=== PATIENT | female | born 1940 | race Caucasian/White ===

== ENCOUNTER 2021-06-25 06:44 | Day surgery (SDC) | payer MEDICARE ==
[2021-06-18 15:29] LABS: BASOPHILS # (AUTO) 0.1 X10'3 (0-0.2); BASOPHILS % (AUTO) 1.4 % (0-1); EOSINOPHILS # (AUTO) 0.1 X10'3 (0-0.9); EOSINOPHILS % (AUTO) 2.4 % (0-6); LYMPHOCYTES # (AUTO) 1.9 X10'3 (1.1-4.8); LYMPHOCYTES % (AUTO) 29.6 % (21-51); MEAN CORPUSCULAR HEMOGLOBIN 31.4 PG (27.0-31.0); MEAN CORPUSCULAR HGB CONC 33.1 g/dL (33.0-36.5); MONOCYTES # (AUTO) 0.7 X10'3 (0-0.9); MONOCYTES % (AUTO) 10.3 % (2-12); NEUTROPHILS # (AUTO) 3.6 X10'3 (1.8-7.7); NEUTROPHILS % (AUTO) 56.3 % (42-75); PRE OP HEMOGLOBIN 11.9 g/dL (12.0-16.0); PRE OP PLATELET COUNT 338 X10'3 (140-440); RED BLOOD COUNT 3.79 X10'6 (4.20-5.60)
[2021-06-18 15:54] LABS: ALBUMIN 3.6 G/DL (3.4-5.0); ALKALINE PHOSPHATASE 60 IU/L (46-116); BLOOD UREA NITROGEN 13 MG/DL (7-18); BUN/CREATININE RATIO 11.6 (6.6-38.0); CALCIUM 9.6 MG/DL (8.5-10.1); CHLORIDE 99 MMOL/L (99-107); CREATININE 1.12 MG/DL (0.40-0.90); PRE OP ANION GAP 5 (8-16); PRE OP AST 19 U/L (10-37); PRE OP BILIRUB, TOTAL 0.3 MG/DL (0.0-1.0); PRE OP GLUCOSE 85 MG/DL (70-104); PRE OP POTASSIUM 3.8 MMOL/L (3.4-5.1); PRE OP SODIUM 135 MMOL/L (135-145); TOTAL CARBON DIOXIDE 30.8 MMOL/L (24-32); TOTAL PROTEIN 7.2 G/DL (6.4-8.2); eGFR 47 ML/MIN
[2021-06-18 16:00] LABS: PRE OP ALT < 6 U/L (30-65)
[~2021-06-25] VITALS: Ht 160 cm; Wt 55.0 kg
[~2021-06-25 06:44] MED LIST: cefazolin/dext.iso 2gm/50ml IV ONE; famotidine 20mg tablet PO ONE; ringers solution, lacted 1,000 ML IV SCH
[2021-06-25] MEDS ORDERED: BUPIVAcaine/PF 2.5 mg/ml (0.25%) 30ml vial ONE (07:27)
[2021-06-25] MEDS ORDERED: CELE-85 PO (07:45)
[2021-06-25] MEDS ORDERED: CLOB15CR11 TOP (07:45)
[2021-06-25] MEDS ORDERED: ESTR1TAB31 PO (07:45)
[2021-06-25] MEDS ORDERED: BUPR300T53 PO (07:45)
[2021-06-25] MEDS ORDERED: CYAN10006 IM (07:45)
[2021-06-25] MEDS ORDERED: LEVO125T PO (07:45)
[2021-06-25] MEDS ORDERED: TRAM50TA2 PO (07:45)
[2021-06-25] MEDS ORDERED: BUSP15TA3 PO (07:45)
[2021-06-25] MEDS ORDERED: VALA100031 PO (07:45)
[2021-06-25] MEDS ORDERED: ESCI-8 PO (07:45)
[2021-06-25] MEDS ORDERED: labetalol 20mg/4ml (5mg/ml) syringe IV PRN (09:55)
[2021-06-25] MEDS ORDERED: morphine 2 MG/ML inj. syringe IV PRN (09:55)
[2021-06-25] MEDS ORDERED: acetaminophen 1,000mg/100ml IV 100 ML IV PRN (09:55)
[2021-06-25] MEDS ORDERED: ondansetron/PF 4mg/2ml inj IV PRN (09:55)
[2021-06-25] MEDS ORDERED: morphine 4 MG/ML inj SYRINge IV PRN (09:55)
[2021-06-25] MEDS ORDERED: proCHLORperazine 10 MG/2 ml inj IV PRN (09:55)
[2021-06-25] MEDS ORDERED: hydrALAZINE 20mg/ml inj. IV PRN (09:55)
[2021-06-25] MEDS ORDERED: ringers solution, lacted 1,000 ML IV SCH (09:55)
[2021-06-25] MEDS ORDERED: meperidine/PF 25mg/ml syringe IV PRN (09:55)
[2021-06-25] MEDS ORDERED: HYDROmorphone/PF 0.2 MG/ML SYRINGE IV PRN ×2 (09:55)
[2021-06-25 10:23] VITALS: BP 167/78
[2021-06-25] MEDS ORDERED: fentaNYL/PF 50MCG/1 ML 2ML syringe ONE (10:36)
[2021-06-25] MEDS ORDERED: midazolam 1 mg/ML 2ml injection ONE (10:37)
[2021-06-25] MEDS ORDERED: LIDOcaine 0.5% (5mg/ml) 50ml vial ONE (11:02)
[2021-06-25] MEDS ORDERED: propofol inj 20 ML IV ONE ×2 (11:02)
[2021-06-25 11:29] VITALS: BP 132/67
--- NOTE | 2021-06-25 11:38 | NUR ---
Received from OR via [facility]. DSG TO LEFT WRIST CDI IV TO RIGHT FA RUNNING LR. , accompanied by Anesthesiologist DR BOND AND DIRECTOR FINANCIAL PLANNINGGLORIA MCCONNELL and report given by Anesthesiolgist. Addendum: 06/25/21 at 1142 by Fabiola Perez RN Amended: Links added.
[2021-06-25 11:40] VITALS: BP 141/71
[2021-06-25 11:50] VITALS: BP 152/77
[2021-06-25 12:00] VITALS: BP 160/75
--- NOTE | 2021-06-25 12:19 | NUR ---
WRITTEN AND PRINTED INSTRUCTIONS GIVEN. PATIENT D/C I HAVE REVIEWED D/C INSTRUCTIONS WITH PATIENT AND THEY HAVE VERBALIZED UNDERSTANDING. TO HOME WITH ALL BELONGINGS VIA WC WITH SON. Addendum: 06/25/21 at 1232 by Fabiola Perez RN Amended: Links added.
== END 2021-06-25 12:11 | disposition home or self-care (01) ==
LOC: PAS 06:44
PROVIDERS: ATTEND Orthopaedic Surgery Hand Surgery
DX: M25.832 Other specified joint disorders, left wrist (principal); S63.592A Other specified sprain of left wrist, initial encounter; F32.9 Major depressive disorder, single episode, unspecified; M18.0 Bilateral primary osteoarthritis of first carpometacarpal joints; E03.9 Hypothyroidism, unspecified; K21.9 Gastro-esophageal reflux disease without esophagitis; Z91.040 Latex allergy status; Z79.899 Other long term (current) drug therapy; Z88.5 Allergy status to narcotic agent; Z90.710 Acquired absence of both cervix and uterus; Z87.891 Personal history of nicotine dependence; Z20.822 Contact with and (suspected) exposure to COVID-19; X58.XXXA Exposure to other specified factors, initial encounter; Y93.89 Activity, other specified; Y92.89 Other specified places as the place of occurrence of the external cause; Y99.8 Other external cause status
CPT/HCPCS: 29846; 36415; 80053; 82948; 85025; 93005; J0690; J2250; J2704; J3010; J3490; J7030; J7120; U0003; U0005; Z7506; Z7512; A4215; A4618; A7000